=== PATIENT | female | born 1990 ===

== ENCOUNTER 2017-01-06 09:51 | Emergency (ER) | payer OTHER ==
[2017-01-06 09:52] VITALS: BMI 29.8
[2017-01-06] MEDS ORDERED: Sodium Chloride 0.9% 1,000 ML IV STA (10:18)
--- NOTE | 2017-01-06 10:27 | ED PDOC ---
HPI: Female Pain Time Seen by Provider: 01/06/17 10:07 Chief Complaint (Nursing): Abdominal Pain Chief Complaint (Provider): R pelvic pain History Per: Patient History/Exam Limitations: no limitations Onset/Duration Of Symptoms: Days (3) Current Symptoms Are (Timing): Still Present Additional History Per: Patient Additional Complaint(s): Mild pressure for 3 days that is very bad now. R lower pelvic. No dysuria, other abd pain, nausea, vomit, weakness, back pain. No diarrhea. Past Medical History Reviewed: Nursing Documentation, Vital Signs Vital Signs: Last Vital Signs Temp 97.7 F 01/06/17 09:52 Pulse 79 01/06/17 09:52 Resp 17 01/06/17 09:52 BP 124/73 01/06/17 09:52 Pulse Ox 96 01/06/17 09:52 - Medical History PMH: Asthma - Surgical History Surgical History: No Surg Hx - Family History Family History: States: Unknown Family Hx - Living Arrangements Living Arrangements: With Family - Social History Alcohol: None Drugs: Denies - Home Medications Home Medications: Ambulatory Orders Medication Instructions Recorded Ibuprofen [Motrin] 600 mg PO TID 7 Days tab 01/06/17 - Allergies Allergies/Adverse Reactions: Allergies Allergy/AdvReac Type Severity Reaction Status Date / Time No Known Allergies Allergy Verified 01/06/17 10:17 Review of Systems ROS Statement: Except As Marked, All Systems Reviewed And Found Negative Gastrointestinal: Positive for: Abdominal Pain Genitourinary Female: Positive for: Pelvic Pain Physical Exam - Reviewed Nursing Documentation Reviewed: Yes Vital Signs Reviewed: Yes - Physical Exam Appears: Positive for: Non-toxic, No Acute Distress Head Exam: Positive for: ATRAUMATIC, NORMAL INSPECTION, NORMOCEPHALIC Skin: Positive for: Normal Color, Warm, DRY Eye Exam: Positive for: EOMI, Normal appearance, PERRL ENT: Positive for: Normal ENT Inspection Neck: Positive for: Normal, Painless ROM Cardiovascular/Chest: Positive for: Regular Rate, Rhythm Respiratory: Positive for: CNT, Normal Breath Sounds Gastrointestinal/Abdominal: Positive for: Bowel Sounds, Soft, Tenderness (R pelvic tenderness) Back: Positive for: Normal Inspection. Negative for: L CVA Tenderness, R CVA Tenderness Extremity: Positive for: Normal ROM. Negative for: Tenderness, Pedal Edema Neurologic/Psych: Positive for: Alert, Oriented - Laboratory Results Result Diagrams: 01/06/17 10:40 01/06/17 10:40 Interpretation Of Abn Labs: no acute - ECG O2 Sat by Pulse Oximetry: 96 Pulse Ox Interpretation: Normal - Progress ED Course And Treament: 1825: Stable. AAOx3. Pain free. Tolerated PO. Spoke with Dr. Camp. States pt. can fu for pelvic congestion syndrome. Made aware of findings and presentation. Disposition - Clinical Impression Clinical Impression: Pelvic congestion syndrome, Abdominal pain Counseled Patient/Family Regarding: Studies Performed, Diagnosis, Need For Followup, Rx Given - [facility]position [facility] - [facility]17 Disposition: Routine/Home Disposition Time: 18:34 Condition: STABLE Additional Instructions: Return if not better in 3 days. Prescriptions: Ibuprofen [Motrin] 600 mg PO TID 7 Days tab Instructions: Acute Abdominal Pain (ED) Forms: [employer] ([place] African)
[2017-01-06 10:48] LABS: BASO # 0.1 K/uL (0.0-0.2); BASO % 0.9 % (0.0-2.0); EOS # 0.3 K/uL (0.0-0.7); EOS % 2.9 % (0.0-4.0); HEMATOCRIT 40.4 % (34.0-47.0); LYMPH # 2.7 K/uL (1.0-4.3); LYMPH % 27.8 % (20.0-40.0); MEAN CELL VOLUME 90.3 fl (81.0-99.0); MEAN CORPUSCULAR HEMOGLOBIN 30.8 pg (27.0-31.0); MEAN CORPUSCULAR HGB CONC 34.1 g/dL (33.0-37.0); MEAN PLATELET VOLUME 7.1 fl (7.2-11.7); MONO # 0.6 K/uL (0.0-0.8); MONO % 6.4 % (0.0-10.0); NEUT # 5.9 K/uL (1.8-7.0); NRBC % 0.1 % (0.0-0.0); RED CELL DISTRIBUTION WIDTH 12.7 % (11.5-14.5); WHITE BLOOD COUNT 9.6 K/uL (4.8-10.8)
[2017-01-06 11:01] LABS: ALB/GLOB RATIO 1.3 (1.0-2.1); ALKALINE PHOSPHATASE 75 U/L (38-126); ALT/SGPT 42 U/L (9-52); AST/SGOT 20 U/L (14-36); BILIRUBIN,TOTAL 0.4 mg/dl (0.2-1.3); BLOOD UREA NITROGEN 17 mg/dl (7-17); CARBON DIOXIDE 23 mmol/L (22-30); CHLORIDE 108 mmol/L (98-107); GFR AFRICAN-AMERICAN > 60; GLUCOSE,RANDOM 109 mg/dL (65-105); POTASSIUM 4.2 MMOL/L (3.6-5.0); SODIUM 139 mmol/l (132-148)
[2017-01-06] MEDS ORDERED: Iohexol 240 (50 ml) PO ONE (14:20)
--- NOTE | 2017-01-06 14:26 | US ---
HISTORY: r/o torsion; pelvic pain R COMPARISON: None available. TECHNIQUE: FINDINGS: UTERUS: Uterus is retroverted measuring approximately 7.3 x 4.6 x 4.6 cm. Normal in size and appearance. No fibroid or other mass lesion seen. . There is a tiny echogenic focus seen within the uterine body that probably represents a small nonspecific calcification ENDOMETRIUM: Measures approximately 3 mm in diameter. Unremarkable. CERVIX: No cervical abnormality identified. RIGHT OVARY: Measures approximately 3.1 x 1.8 x 3.0 cm. No solid mass. Normal flow. There appears to be small right adnexal varicocele. LEFT OVARY: Measures approximately 3.8 by 1.5 x 2.8 cm. No solid mass. Normal flow. There appears to be a small left adnexal varicocele FREE FLUID: Small amount of free fluid present within the cul sac OTHER FINDINGS: None. IMPRESSION: Apparent bilateral adnexal varicoceles ; rule out pelvic congestion syndrome. . Small amount of free fluid within the cul de sac
[2017-01-06] MEDS ORDERED: Iohexol 240 (50 ml) ONE (14:50)
[2017-01-06] MEDS ORDERED: Sodium Chloride 0.9% 50 ML IV ONE (16:40)
[2017-01-06] MEDS ORDERED: Iohexol 300 100 ML IJ ONE (16:40)
--- NOTE | 2017-01-06 17:54 | CT ---
PROCEDURE: CT abdomen pelvis dated 01/06/2017 HISTORY: Abdominal pain COMPARISON: No prior TECHNIQUE: Contiguous axial images of the abdomen and pelvis performed following oral and intravenous injection of approximately 98 cc of Omnipaque contrast material. Coronal and sagittal reformats generated. This CT exam was performed using one or more of the following dose reduction techniques: Automated exposure control, adjustment of the mA and/or kV according to patient size, and/or use of iterative reconstruction technique. Contrast dose: 98 cc Omnipaque contrast material Radiation dose: Total exam DLP = 983.86 mGy-cm. FINDINGS: LOWER THORAX: Unremarkable. Bilateral breast implants. Mild atelectasis both posterior sulci left greater than right. . There appears to be some minimal linear scarring in the right middle lobe region and minor atelectasis in the. No evidence of effusion or basilar pneumothorax. Small hiatal hernia. Heart size within range of normal. LIVER: Unremarkable. No gross lesion or ductal dilatation. The liver exhibits normal size measuring just over 16 cm in CC dimension. Mild fatty hepatic infiltration. No obvious hepatic mass collection or calcification. Portal and splenic veins are opacified. GALLBLADDER AND BILE DUCTS: Gallbladder is physiologically distended. No evidence of intraluminal gallbladder calculi. PANCREAS: Unremarkable. No mass. No ductal dilatation. SPLEEN: Spleen exhibits normal size and attenuation pattern. ADRENALS: No adrenal lesions. . KIDNEYS AND URETERS: Kidneys demonstrate symmetric nephrograms. No evidence of nephrolithiasis or hydronephrosis. The BLADDER: The urinary bladder is incompletely distended which may account for thick-walled appearance however cystitis should be excluded. Clinical correlation with urinalysis recommended REPRODUCTIVE: Uterus appears grossly unremarkable however there is free fluid seen in the pelvis surrounding the uterus. No obvious adnexal lesion. . APPENDIX: A normal-appearing appendix is best seen on axial image number [id number]. No evidence to suggest acute appendicitis. BOWEL: Evaluation of the bowel is limited due to incomplete opacification. Stomach is incompletely distended with liquid contrast material some food debris and air. Prominent rugal folds; rule out gastritis. Visualized on loops of small bowel exhibit normal contour and caliber. No evidence of acute mechanical small bowel obstruction. There is a large amount of stool seen throughout the ascending and transverse colon consistent with fecal retention/ constipation. PERITONEUM: Free fluid is present within the pelvis nonspecific ; rule out ruptured ovarian cyst. . Clinical correlation recommended. Clinical correlation recommended to determine whether additional imaging such as pelvic ultrasound is required. . LYMPH NODES: Unremarkable. No enlarged lymph nodes. VASCULATURE: No evidence of abdominal aortic or iliac artery aneurysms. BONES: No significant degenerative spondylosis of the lower thoracic or lumbar spine. There does appear to be small central and bilateral disc bulge at the L5-S1 level which reaches the ventral surface of the thecal sac however no significant canal stenosis. OTHER FINDINGS: None. IMPRESSION: There is a small amount of free fluid seen in the pelvis nonspecific ; rule out ruptured on the ovarian cyst. Follow-up pelvic ultrasound could be performed if further evaluation is required. Consider followup pelvic ultrasound if further evaluation is required. . Urinary bladder is incompletely distended which presumably accounts for thick-walled appearance however cystitis should be excluded. Mild fatty hepatic infiltration. No evidence of acute appendicitis. Findings suggest mild constipation
[2017-01-06 18:56] VITALS: BP 134/76; PULSE 78; RESP 18; TEMP 98.1; O2SAT 100
== END 2017-01-06 18:56 | disposition home or self-care (01) ==
LOC: H.ER 09:51
DX: N94.89 Other specified conditions associated with female genital organs and menstrual cycle (principal); J45.909 Unspecified asthma, uncomplicated
CPT/HCPCS: 74177; 76830; 80053; 81025; 85025; 96374; 99283; J1885; J2405; J7040; Q9966; Q9967

== ENCOUNTER 2017-03-19 16:10 | Emergency (ER) | payer OTHER ==
[2017-03-19 16:10] VITALS: BMI 29.8
[2017-03-19 16:44] VITALS: BP 114/62; PULSE 71; RESP 16; TEMP 98.7; O2SAT 99
[2017-03-19] MEDS ORDERED: Albuterol-Ipratrop 3 mg / 0.5 (3 ml) UD ONE (17:32)
[2017-03-19] MEDS: Albuterol-Ipratrop 3 mg / 0.5 (3 ml) UD IH SCH ×2 (17:45→17:55)
--- NOTE | 2017-03-19 17:55 | ED PDOC ---
HPI: CCC, URI, Sore Throat Time Seen by Provider: 03/19/17 16:52 Chief Complaint (Nursing): Cough, Cold, Congestion Chief Complaint (Provider): Cough, Cold, Congestion History Per: Patient History/Exam Limitations: no limitations Onset/Duration Of Symptoms: Days (x3) Current Symptoms Are (Timing): Still Present Additional Complaint(s): 26 year old female with medical history of asthma, who presents to the emergency department with a complaint of congestion associated with hoarseness ongoing for 3 days. Denied any fever, chills, chest pain, skin rash or recent travel. PMD: none provided Past Medical History Reviewed: Historical Data, Nursing Documentation, Vital Signs Vital Signs: Last Vital Signs Temp 98.7 F 03/19/17 16:40 Pulse 71 03/19/17 16:40 Resp 16 03/19/17 16:40 BP 114/62 03/19/17 16:40 Pulse Ox 99 03/19/17 19:04 - Medical History PMH: Asthma - Family History Family History: States: Unknown Family Hx - Social History Current smoker - smoking cessation education provided: No Ex-Smoker (has not smoked in the last 12 months): Yes Drugs: Denies - Home Medications Home Medications: Ambulatory Orders Medication Instructions Recorded Ibuprofen [Motrin] 600 mg PO TID 7 Days tab 01/06/17 Albuterol 0.083% [Albuterol 3 ml IH Q4 #100 neb 03/19/17 Sulfate 3 Ml] Albuterol HFA [Ventolin HFA 90 2 puff IH [id number] #1 puff 03/19/17 mcg/actuation (8 g)] Guaifenesin 400 mg PO QID #20 tablet 03/19/17 Nebulizer [Aeroeclipse II] 1 each MC DAILY #1 each 03/19/17 predniSONE [predniSONE Tab] 40 mg PO DAILY #8 tab 03/19/17 - Allergies Allergies/Adverse Reactions: Allergies Allergy/AdvReac Type Severity Reaction Status Date / Time No Known Allergies Allergy Verified 03/19/17 16:40 Review of Systems ROS Statement: Except As Marked, All Systems Reviewed And Found Negative Constitutional: Negative for: Fever, Chills ENT: Positive for: Nose Congestion, Other (hoarseness) Cardiovascular: Negative for: Chest Pain Skin: Negative for: Rash Physical Exam - Reviewed Nursing Documentation Reviewed: Yes Vital Signs Reviewed: Yes - Physical Exam Appears: Positive for: Well, Non-toxic, No Acute Distress Skin: Positive for: Normal Color, Warm, Dry ENT: Positive for: Normal ENT Inspection, Pharynx Is (within normal limits). Negative for: Pharyngeal Erythema, Tonsillar Exudate Neck: Positive for: Normal, Supple Cardiovascular/Chest: Positive for: Regular Rate, Rhythm, Chest Non Tender Respiratory: Positive for: Decreased Breath Sounds. Negative for: Normal Breath Sounds, Rales, Rhonchi, Wheezing, Respiratory Distress Gastrointestinal/Abdominal: Positive for: Normal Exam, Soft. Negative for: Tenderness Extremity: Positive for: Normal ROM (upper/lower). 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 Negative for: Motor/Sensory Deficits - ECG O2 Sat by Pulse Oximetry: 99 (RA) Pulse Ox Interpretation: Normal Medical Decision Making Medical Decision Making: Initial Impression: URI Initial Plan: * Duoneb 3ml INH * Prednisone 60mg PO On reevaluation, patient is sitting comfortably in no acute distress. Patient speaking in full sentences, breathing is easy and unlabored. On exam, lungs are clear to auscultation with complete resolution of wheezing, no rhonchi, no rales. Diagnosis of acute asthma exacerbation related to cough, likely due to viral illness discussed with the patient. Advised to follow up with primary care physician or the clinic in 1-2 days without fail. Advised to take medication as prescribed. Return to the emergency room at any time for any new or worsening symptoms. Patient states she fully agrees with and understands discharge instructions. States that she agrees with the plan and disposition. Verbalized and repeated discharge instructions and plan. I have given the patient opportunity to ask any additional questions. Scribe Attestation: Documented by Tiffanie Sloan, acting as a scribe for Abbie Cat PA-C. Provider Scribe Attestation: All medical record entries made by the Scribe were at my direction and personally dictated by me. I have reviewed the chart and agree that the record accurately reflects my personal performance of the history, physical exam, medical decision making, and the department course for this patient. I have also personally directed, reviewed, and agree with the discharge instructions and disposition. Disposition - Clinical Impression Clinical Impression: Asthma, Cough - Patient ED Disposition Is Patient to be Admitted: No Counseled Patient/Family Regarding: Diagnosis, Need For Followup, Rx Given - Disposition Referrals: [facility] [Outside] Disposition Time: 19:01 Condition: IMPROVED Additional Instructions: Thank you for letting us take care of you today. You were treated for asthma, viral illness. The emergency medical care you received today was directed at your acute symptoms. If you were prescribed any medication, please fill it and take as directed. It may take several days for your symptoms to resolve. Return to the Emergency Department if your symptoms worsen, do not improve, or if you have any other problems. Please contact your doctor in 2 days for re-evaluation and follow up / or call one of the physicians/clinics you have been referred to that are listed on the Patient Visit Information form that is included in your discharge packet. Bring any paperwork you were given at discharge with you along with any medications you are taking to your follow up visit. Our treatment cannot replace ongoing medical care by a primary care provider (PCP) outside of the emergency department. [facility] your care today. Prescriptions: Albuterol HFA [Ventolin HFA 90 mcg/actuation (8 g)] 2 puff IH [id number] #1 puff Albuterol 0.083% [Albuterol Sulfate 3 Ml] 3 ml IH Q4 #100 neb Guaifenesin 400 mg PO QID #20 tablet Nebulizer [Aeroeclipse II] 1 each MC DAILY #1 each predniSONE [predniSONE Tab] 40 mg PO DAILY #8 tab Instructions: Asthma (ED), Viral Syndrome (ED) Forms: [employer] (Canadian), [facility] ED School/Work Excuse Print Language: TAJIK - PA / WHARF TENDER HEAD / Resident Statement MD/DO has reviewed & agrees with the documentation as recorded.
== END 2017-03-19 19:31 | disposition home or self-care (01) ==
LOC: H.ER 16:10
DX: J45.901 Unspecified asthma with (acute) exacerbation (principal)

== ENCOUNTER 2017-06-04 18:40 | Emergency (ER) | payer OTHER ==
[2017-06-04 18:40] VITALS: BMI 29.8
--- NOTE | 2017-06-04 21:31 | ED PDOC ---
HPI: Chest Pain Time Seen by Provider: 06/04/17 21:04 Chief Complaint (Nursing): Chest Pain Chief Complaint (Provider): chest pain History Per: Patient History/Exam Limitations: no limitations Onset/Duration Of Symptoms: Hrs, Waxing/Waning Current Symptoms Are (Timing): Still Present Quality: Sharp Exacerbating Factors: Turning, Movement, Deep Breathing Additional Complaint(s): 26 y/o female presents with intermitent sharp left-sided chest pain x 5 hours. Patient states when pain present it takes her breath away. Pain worsened by movement, deep breathing, and coughing. Denies fever, nausea/vomiting, palpitations, leg pain/swelling, recent travel, OCP use. Past Medical History Reviewed: Historical Data, Nursing Documentation, Vital Signs Vital Signs: Last Vital Signs Temp 98.5 F 06/04/17 18:44 Pulse 97 H 06/04/17 18:44 Resp 16 06/04/17 18:44 BP 131/82 06/04/17 18:44 Pulse Ox 94 L 06/04/17 21:31 - Medical History PMH: Asthma - Surgical History Surgical History: - Family History Family History: States: Unknown Family Hx - Home Medications Home Medications: Ambulatory Orders Medication Instructions Recorded Ibuprofen [Motrin] 600 mg PO TID 7 Days tab 01/06/17 Albuterol 0.083% [Albuterol 3 ml IH Q4 #100 neb 03/19/17 Sulfate 3 Ml] Albuterol HFA [Ventolin HFA 90 2 puff IH [id number] #1 puff 03/19/17 mcg/actuation (8 g)] Guaifenesin 400 mg PO QID #20 tablet 03/19/17 Nebulizer [Aeroeclipse II] 1 each MC DAILY #1 each 03/19/17 predniSONE [predniSONE Tab] 40 mg PO DAILY #8 tab 03/19/17 - Allergies Allergies/Adverse Reactions: Allergies Allergy/AdvReac Type Severity Reaction Status Date / Time No Known Allergies Allergy Verified 03/19/17 16:40 Review of Systems ROS Statement: Except As Marked, All Systems Reviewed And Found Negative Cardiovascular: Positive for: Chest Pain Physical Exam - Reviewed Nursing Documentation Reviewed: Yes Vital Signs Reviewed: Yes - Physical Exam Appears: Positive for: Well, Non-toxic, No Acute Distress Head Exam: Positive for: ATRAUMATIC, NORMAL INSPECTION, NORMOCEPHALIC Skin: Positive for: Normal Color Eye Exam: Positive for: Normal appearance ENT: Positive for: Normal ENT Inspection Cardiovascular/Chest: Positive for: Regular Rate, Rhythm. Negative for: Chest Non Tender (tender to palpate left anterior chest wall; no ecchymosis, edema, erythema noted) Respiratory: Positive for: Normal Breath Sounds Gastrointestinal/Abdominal: Positive for: Normal Exam Back: Positive for: Normal Inspection Extremity: Positive for: Normal ROM Neurologic/Psych: Positive for: Alert, Oriented - Laboratory Results Result Diagrams: 06/04/17 23:02 06/04/17 23:02 - ECG ECG: Positive for: Viewed By Me (reviewed by ED attending) ECG Rhythm: Positive for: Sinus Rhythm O2 Sat by Pulse Oximetry: 94 - Progress ED Course And Treament: labs, ekg, chest xray On re-eval, patient states pain resolved. Patient educated on findings, discharged with instructions to follow up PMD 2-3 days. Advised NSAIDs. Return precautions given. Disposition - Clinical Impression Clinical Impression: Atypical chest pain - Patient ED Disposition Is Patient to be Admitted: No Counseled Patient/Family Regarding: Studies Performed, Diagnosis, Need For Followup - Disposition Referrals: [facility] [Outside] Disposition: Routine/Home Disposition Time: 00:49 Condition: IMPROVED Instructions: Chest Pain That Is Not Caused by the Heart (DC) Forms: [employer] ([place]ican)
[2017-06-04 23:47] LABS: BASO # 0.1 K/uL (0.0-0.2); BASO % 1.1 % (0.0-2.0); EOS # 0.2 K/uL (0.0-0.7); EOS % 2.1 % (0.0-4.0); HEMOGLOBIN 13.4 g/dL (12.0-16.0); LYMPH # 4.2 K/uL (1.0-4.3); LYMPH % 38.5 % (20.0-40.0); MEAN CELL VOLUME 92.4 fl (81.0-99.0); MEAN CORPUSCULAR HEMOGLOBIN 31.2 pg (27.0-31.0); MEAN CORPUSCULAR HGB CONC 33.8 g/dL (33.0-37.0); MEAN PLATELET VOLUME 7.3 fl (7.2-11.7); MONO # 0.6 K/uL (0.0-0.8); MONO % 5.6 % (0.0-10.0); NEUT # 5.8 K/uL (1.8-7.0); NEUT % 52.7 % (50.0-75.0); RBC 4.28 Mil/uL (3.80-5.20); RED CELL DISTRIBUTION WIDTH 13.1 % (11.5-14.5)
[2017-06-04 23:57] LABS: ALB/GLOB RATIO 1.2 (1.0-2.1); ALBUMIN 4.3 g/dL (3.5-5.0); ALT/SGPT 41 U/L (9-52); AST/SGOT 25 U/L (14-36); BLOOD UREA NITROGEN 16 mg/dl (7-17); CALCIUM 9.3 mg/dL (8.4-10.2); GFR AFRICAN-AMERICAN > 60; GFR NON-AFRICAN AMERICAN > 60
[2017-06-05 00:56] VITALS: BP 122/68; PULSE 60; RESP 18; TEMP 97.8; O2SAT 100
--- NOTE | 2017-06-05 08:59 | CARD ---
APPROVED REPORT EKG Measurement Heart [id number] <Conclusion> Normal sinus rhythm with sinus arrhythmia Normal ECG
--- NOTE | 2017-06-05 11:58 | RAD ---
HISTORY: chest pain COMPARISON: No prior. TECHNIQUE: Chest PA and lateral FINDINGS: LUNGS: No active pulmonary disease. PLEURA: No significant pleural effusion identified. No pneumothorax apparent. CARDIOVASCULAR: Normal. OSSEOUS STRUCTURES: No significant abnormalities. VISUALIZED UPPER ABDOMEN: Normal. OTHER FINDINGS: The symmetrical minimal increased density over both mid to lower lung zones is compatible with probable bilateral implants IMPRESSION: No acute cardiopulmonary pathology noted
== END 2017-06-05 01:00 | disposition home or self-care (01) ==
LOC: H.ER 18:40
DX: R07.89 Other chest pain (principal); J45.909 Unspecified asthma, uncomplicated
CPT/HCPCS: 71046; 80053; 81025; 84484; 85025; 93005; 99283; J1885

== ENCOUNTER 2017-07-15 23:04 | Emergency (ER) | payer OTHER ==
[2017-07-15 23:04] VITALS: BMI 29.8
[2017-07-15 23:13] VITALS: RESP 18
--- NOTE | 2017-07-15 23:26 | ED PDOC ---
HPI: Skin/Bite Injury Time Seen by Provider: 07/15/17 23:18 Chief Complaint (Nursing): Abnormal Skin Integrity History Per: Patient History/Exam Limitations: no limitations Onset/Duration Of Symptoms: Hrs Additional Complaint(s): No PMHx, patient has rash to L elbow that she noticed today, unsure of how she got it, thinks she might have been bit by an insect. no fevers, chills or any other symptoms. Past Medical History Reviewed: Historical Data, Nursing Documentation, Vital Signs Vital Signs: Last Vital Signs Temp 98.1 F 07/15/17 23:10 Pulse 74 07/15/17 23:10 Resp 18 07/15/17 23:10 BP 131/77 07/15/17 23:10 Pulse Ox 100 07/15/17 23:10 - Medical History PMH: Asthma - Surgical History Surgical History: - Family History Family History: States: Unknown Family Hx - Home Medications Home Medications: Ambulatory Orders Medication Instructions Recorded Ibuprofen [Motrin] 600 mg PO TID 7 Days tab 01/06/17 Albuterol 0.083% [Albuterol 3 ml IH Q4 #100 neb 03/19/17 Sulfate 3 Ml] Albuterol HFA [Ventolin HFA 90 2 puff IH [id number] #1 puff 03/19/17 mcg/actuation (8 g)] Guaifenesin 400 mg PO QID #20 tablet 03/19/17 Nebulizer [Aeroeclipse II] 1 each MC DAILY #1 each 03/19/17 predniSONE [predniSONE Tab] 40 mg PO DAILY #8 tab 03/19/17 Cephalexin [cephalexin] 500 mg PO QID 7 Days cap 07/15/17 - Allergies Allergies/Adverse Reactions: Allergies Allergy/AdvReac Type Severity Reaction Status Date / Time No Known Allergies Allergy Verified 07/15/17 23:09 Review of Systems ROS Statement: Except As Marked, All Systems Reviewed And Found Negative Skin: Positive for: Rash Physical Exam - Reviewed Nursing Documentation Reviewed: Yes Vital Signs Reviewed: Yes - Physical Exam Appears: Positive for: Well, Non-toxic, No Acute Distress Skin: Negative for: Normal Color (5x5 and 2x2 cm erythematous rash to L arm proximal to elbow, no fluctuance, no induration, no streaking) - ECG O2 Sat by Pulse Oximetry: 100 Medical Decision Making Medical Decision Making: Patient with mild rash to elbow, possibly cellulitic secondary to scratch or bite. Site was circled, ABx to be prescribed, adivsed patient to followup or return to ER if rash worsens or doesn't improve after 2 days of ABx or any other concerning symptoms. Disposition - Clinical Impression Clinical Impression: Cellulitis - Patient ED Disposition Is Patient to be Admitted: No - Disposition Referrals: [facility] [Outside] Disposition: Routine/Home Disposition Time: 23:29 Condition: GOOD Prescriptions: Cephalexin [cephalexin] 500 mg PO QID 7 Days cap Instructions: Cellulitis (Skin Infection), Adult (DC)
[2017-07-16 01:11] VITALS: BP 124/72; PULSE 76; TEMP 98.4; O2SAT 99
== END 2017-07-16 00:05 | disposition home or self-care (01) ==
LOC: H.ER 23:04
DX: L03.114 Cellulitis of left upper limb (principal)